=== PATIENT | male | born 1975 | race Caucasian/White ===

== ENCOUNTER 2022-03-04 17:27 | Emergency (ER) | payer OTHER, SELFPAY ==
[2022-03-04 17:40] VITALS: BP 117/82; PULSE 81; RESP 18; TEMP 37; O2SAT 98
[2022-03-04] MEDS: ACETAMINOPHEN 1,000 MG/100 ML BTL 400 MG IVPB (18:15)
[2022-03-04 18:19] LABS: Abs Immature Grans 0.04 10^3/uL (0.0-0.06); Absolute Basophil Count 0.04 10^3/uL (0.0-0.2); Absolute Monocyte Count 0.61 10^3/uL (0.1-0.8); Basophils % 0.3; Eosinophils % 0.3; HCT 38.6 % (40.0-50.0); HGB 13.4 g/dL (13.5-17.5); Immature Grans % 0.3; Lymphocytes % 4.2; MCH 30.4 pg (27.0-33.0); MCHC 34.7 % (32.0-36.0); MCV 88 fL (80-95); MPV 10.1 fL (8.0-11.0); Monocytes % 5.2; Neutrophils % 89.7; Platelet Count 264 10^3/uL (130-400); RBC 4.41 10^6/uL (4.36-5.78); RDW 12.3 % (11.8-14.1); RDW-SD 39.4 fL
[2022-03-04 18:22] LABS: Absolute Eosinophil Count 0.04 10^3/uL (0.0-0.7); Absolute Neutrophil Count 10.58 10^3/uL (1.2-6.7)
--- NOTE | 2022-03-04 18:29 | DI.CT_ITS ---
Exam(s) CT CHEST/ABD/PEL W CT THORACIC LUMBAR SPINE REC EXAM: CT CHEST/ABD/PEL W and thoracic and lumbar spine recons. CLINICAL HISTORY: Trauma- left lateral pain TECHNIQUE: Imaging Protocol: Axial computed tomography images with coronal and sagittal reformatted images were created and reviewed CONTRAST MATERIAL: Intravenous:Visipaque 320 contrast volume:100 mL Oral: No COMPARISON: No previous for comparison. FINDINGS: CHEST: Tracheobronchial tree: Patent where visualized. Pulmonary parenchyma: No consolidation or dominant measurable mass. No architectural distortion. Ther e is dependent atelectasis. Visualized thyroid gland: Unremarkable. Mediastinum and Li: No dominant adenopathy or fluid collection. The esophagus is unremarkable. Pleura: No effusion or pneumothorax. Heart: The heart is not dilated. Coronary artery calcifications are present. No pericardial effusion . Pulmonary arteries: The pulmonary arteries are not opacified well enough for evaluation of pulmonary emboli. Aorta: Thoracic aorta non-dilated. Lymph nodes: Within normal limits. Soft tissues: Unremarkable. Bones:There are fractures involving the left 4th through 10th ribs. There mostly nondisplaced. Thoracic spine recons: There are no acute fractures in the thoracic spine. ABDOMEN: Liver: Normal density. No measurable mass. Portal, Superior Mesenteric, and Splenic Veins: Unremarkable. Gallbladder and Biliary Tract: No radiodense calculus or dilation. Pancreas: Normal density, no abnormal calcifications or inflammatory process. Spleen: Normal. Adrenals: No masses seen. Kidneys: Normal size, contour and axis. No radiodense stones or obstructive uropathy. No masses seen. Abdominal Aorta: Abdominal portion non-dilated. Mild atherosclerosis. Bowel: No obstruction or bowel wall thickening. Appendix is unremarkable. Peritoneal Cavity: No ascites, collection or mesenteric inflammatory response. No free air. Lymph Nodes: Within normal limits. Bones: Within normal limits for the patient's age. Soft Tissues: Unremarkable. Lumbar spine recons: No acute fracture or subluxation is seen in the lumbar spine. PELVIS: Bladder: Symmetric distention, no gross wall thickening. Reproductive Organs: Unremarkable as visualized. Lymph Nodes: Within normal limits. Bones: Within normal limits. IMPRESSION: 1. No acute abdominal or pelvic organ injury. 2. Multiple left rib fractures. No pneumothorax or pleural effusion. Infiltrates in the lungs which may represent atelectasis or contusions. RADIATION DOSE DELIVERED: 1237.61 mGy.cm Total DLP DATA REPOSITORY: All CT scans at this facility are submitted to the National Radiology Data Registry (NRDR) Dose Index Registry (DIR) with the [employer] (A[employer]). RADIATION OPTIMIZATION: All CT scans at this facility use at least one of these dose optimization te chniques: automated exposure control; mA and/or kV adjustment per patient size (includes targeted exa ms where dose is matched to clinical indication); or iterative reconstruction.
[2022-03-04 18:34] LABS: ALT 21 U/L (16-63); AST 25 U/L (15-37); Albumin 4.4 g/dL (3.4-5.0); Alkaline Phosphatase 79 U/L (46-116); Anion Gap 8.4 mmol/L (3-11); BUN 26 mg/dL (7-18); Bilirubin, Total 0.8 mg/dL (0.2-1.0); CO2 26.6 mmol/L (21.0-32.0); CREATININE 1.2 mg/dL (0.70-1.30); Calcium 9.4 mg/dL (8.5-10.1); Chloride 99 mmol/L (98-107); Glucose 123 mg/dL (74-106); Potassium 4.1 mmol/L (3.5-5.1); Sodium 134 mmol/L (136-145); Total Protein 7.5 g/dL (6.4-8.2)
[2022-03-04 18:35] LABS: Bilirubin Negative (Negative); Blood Negative (Negative); Clarity Clear (Clear); Glucose Negative (Negative); Ketones Trace mg/dL (Negative); Leukocyte Esterase Negative (Negative); Nitrite Negative (Negative); Specific Gravity >= 1.030 (1.005-1.025); Urobilinogen 0.2 EU/dL (Up TO 0.2); pH 5.5 (5-8)
[2022-03-04 18:45] LABS: Bacteria Negative HPF (Negative); Crystals Negative HPF (Negative); Epithelial Cells Negative HPF (Negative); Mucus Heavy (Negative); RBC 0-2 HPF (0-2); WBC 0-2 HPF (0-5)
[2022-03-04 18:46] LABS: C & S Indicated? No; Casts 3-5 Coarse Granular LPF (Negative)
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
--- NOTE | 2022-03-04 19:18 | DI.VRAD_ITS ---
PROCEDURE INFORMATION: Exam: CT Chest With Contrast; Diagnostic Exam date and time: 03/04/2022 6:36 PM Age: 46 years old Clinical indication: Other: Trauma, left lateral pain TECHNIQUE: Imaging protocol: Diagnostic computed tomography of the chest with contrast. Contrast material: 320; Contrast volume: 100 ml; Contrast route: INTRAVENOUS (IV); COMPARISON: No relevant prior studies available. FINDINGS: Thyroid: Normal thyroid. Lungs: Mild dependent atelectasis bilaterally. Areas of ground-glass opacity noted in the left lower lobe and right middle lobe. No consolidation. No significant endobronchial mucus. Pleural spaces: Unremarkable. No pneumothorax. No pleural effusion. Heart: No cardiomegaly. No pericardial effusion. Mild coronary artery calcifications. Lymph nodes: Unremarkable. No enlarged lymph nodes. Vasculature: Thoracic aorta is intact without aneurysm or dissection. Bones/joints: Left-sided rib fractures are noted, acute. Nondisplaced fractures are noted at the left lateral 6th, 7th, and 8th ribs. A mildly displaced fracture is present in the posterior left 11th rib. Sternum is intact. Please see thoracic spine CT dictated separately. Soft tissues: Negative for chest wall hematoma or soft tissue air. IMPRESSION: 1. Left-sided rib fractures. 2. Mild pulmonary contusions. 3. No pneumothorax. 4. No pleural effusion. PROCEDURE INFORMATION: Exam: CT Abdomen And Pelvis With Contrast Exam date and time: 03/04/2022 6:36 PM Age: 46 years old Clinical indication: Other: Trauma, left lateral pain TECHNIQUE: Imaging protocol: Computed tomography of the abdomen and pelvis with contrast. Contrast material: 320; Contrast volume: 100 ml; Contrast route: INTRAVENOUS (IV); COMPARISON: No relevant prior studies available. FINDINGS: Lungs: Please see CT chest report above. Liver: Liver is normal without laceration or hematoma. Gallbladder and bile ducts: Normal. No calcified stones. No ductal dilation. Pancreas: No pancreatic injury or hematoma. Spleen: Spleen is normal without laceration or hematoma. No perisplenic hemorrhage or fluid seen. Adrenal glands: Normal. No mass. Kidneys and ureters: Kidneys are intact without laceration or hematoma. No perinephric fluid or hematoma seen. Stomach and bowel: Unremarkable. No obstruction. No mucosal thickening. Appendix: Normal appendix. Intraperitoneal space: Negative for intraperitoneal free fluid or free air. Negative for retroperitoneal hematoma. Vasculature: Negative for abdominal aortic aneurysm or dissection. Mild calcified plaque present. Lymph nodes: Unremarkable. No enlarged lymph nodes. Urinary bladder: Unremarkable as visualized. Reproductive: Unremarkable as visualized. Bones/joints: Bony pelvis and proximal femurs are intact. Please see CT lumbar spine dictated separately. Soft tissues: Unremarkable. IMPRESSION: Negative for acute traumatic injury in the abdomen or pelvis. Dictated and Authenticated by: Patrick Bustillo MD. Ordering:ROLANDO Olivarez MD
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
[2022-03-04 20:26] VITALS: BP 126/80; PULSE 70; RESP 18; TEMP 37; O2SAT 99
== END 2022-03-04 20:27 | disposition home or self-care (01) ==
PROVIDERS: Emergency Provider Nurse Practitioner Family
DX: S27.321A Contusion of lung, unilateral, initial encounter (principal); S22.42XA Multiple fractures of ribs, left side, initial encounter for closed fracture; V19.9XXA Pedal cyclist (driver) (passenger) injured in unspecified traffic accident, initial encounter
CPT/HCPCS: 74177; 80053; 96374; 99285; 71260; 81003; 81015; 85025; 99284; J0131